=== PATIENT | male | born 1990 | race Caucasian/White ===

== ENCOUNTER 2020-10-27 01:58 | Emergency (ER) | payer SELFPAY ==
[2020-10-27 02:27] VITALS: BP 147/76; PULSE 72; RESP 18; TEMP 36.6; O2SAT 98; BMI 26.4
--- NOTE | 2020-10-27 02:27 | ED_ITS ---
HPI - SOB/Dyspnea General Chief Complaint: Upper Respiratory Symptoms Stated Complaint: fever, cough, headache Time Seen by Provider: 10/27/20 02:27 Source: patient Mode of arrival: ambulatory Limitations: no limitations History of Present Illness HPI Narrative: Patient is exposed to his sick girlfriend, brought her to the ED so he thinks he will get tested, patient states he has sore throat, myalgias, nasal congestion with chills MD elicited complaint: cough Onset (ago): day(s) Context: recent illness Timing: constant Severity: mild Exacerbating factors: nothing Relieving factors: nothing Associated symptoms: denies other symptoms Related Data Allergies Allergy/AdvReac Type Severity Reaction Status Date / Time No Known Allergies Allergy Unverified 10/26/19 19:25 [No Known Allergies*] Review of Systems Constitutional: Constitutional: Reports no additional constitutional complaints Eyes: Eyes: Reports no additional eye complaints ENT: Denies dizziness Cardiovascular: Cardiovascular: Reports no additional cardiovascular complaints Respiratory: Respiratory: Reports as per HPI Gastrointestinal: Gastrointestinal: Reports no additional gastrointestinal complaints Musculoskeletal: Musculoskeletal: Reports no additional musculoskeletal complaints Integumentary/Breasts: Skin/Breast: Denies rash Neurologic: Reports system reviewed and no additional complaints, except as documented, Denies dizziness and Denies Sensory deficit (Neuro) Psychiatric: Psychiatric: Denies anxiety PMFSH Social History Social History Advance Directives: No Advance Directives Information Provided: Yes Physical Exam Vital Signs: Vital Signs: Last Vital Signs Temp 97.8 F 10/27/20 02:27 Pulse 72 10/27/20 02:27 Resp 18 10/27/20 02:27 BP 147/76 H 10/27/20 02:27 Pulse Ox 98 10/27/20 02:27 Body Mass Index 26.4 Const: General: healthy appearing Nutritional Appearance: average body johnson bitus Orientation/consciousness: oriented to person and patient oriented x3 Limitations: no limitations HENMT: Head: Yes normal to inspection Ears: external ears normal General nose exam: Normal external nose present Mouth: Normal oral and palatal mucosa present and oropharynx normal Throat: Yes posterior oropharynx normal Eyes: General: appearance normal, both eyes and all related structures Neck: Other: supple Neck: Yes normal visual inspection Chest: Chest palpation & inspection: normal inspection of the chest Resp: Auscultation: clear to auscultation bilaterally Cardio: Jugular venous distension: no JVD Rate: regular rate Rhythm: regular rhythm Heart sounds: S1 normal heart sound present and S2 normal heart sound present GI: Inspection: Yes normal to inspection Palpation (GI): Soft to palpation, nontender and No hepatosplenomegaly present Auscultation: normal bowel sounds : General: Yes no CVA tenderness Back/Spine/Pelvis: Back: no CVA tenderness Skin: General skin exam: no rashes or lesions noted Neuro: General: oriented to person and patient oriented x3 Cranial nerves: Yes CN's II-XII intact bilaterally Motor exam (neuro): 5/5 motor strength present throughout Sensory Exam: No Sensory deficit (Neuro) Extrem: General: Yes normal to inspection Psych: Appearance: grossly normal Course Reevaluation(s) Reevaluation #1: patient with viral illness, COVID negative will dc home Time: 04:45 MDM - SOB/Dyspnea Lab Data Labs: Lab Results 10/27/20 Range/Units 02:45 Coronavirus (PCR) NEGATIVE (Negative) Influenza Type A (PCR) NEGATIVE (Negative) Influenza Type B (PCR) NEGATIVE (Negative) RSV RNA Qual (PCR) NEGATIVE (Negative) Discharge Plan Discharge Clinical Impression: Viral infection Patient Disposition: Home, Self-Care Instructions: Viral Syndrome (ED) Referrals: Physician,Nonstaff [Primary Care Provider] - 1 week
[2020-10-27 03:46] LABS: Influenza A PCR NEGATIVE (Negative); Influenza B PCR NEGATIVE (Negative); Resp Syncy Virus RNA Qual PCR NEGATIVE (Negative); SARS COV2 PCR INHOUSE NEGATIVE (Negative)
== END 2020-10-27 05:06 | disposition home or self-care (01) ==
PROVIDERS: Emergency Provider Emergency Medicine
DX: B34.9 Viral infection, unspecified (principal); R50.9 Fever, unspecified; R51.9 Headache, unspecified; R05 Cough; Z20.822 Contact with and (suspected) exposure to COVID-19
CPT/HCPCS: 0241U; 36415; 99283

== ENCOUNTER 2021-10-21 12:57 | Emergency (ER) | payer SELFPAY ==
--- NOTE | ~2021-10-21 | XR_ITS ---
EXAMINATION: XR CHEST CLINICAL INFORMATION: Left-sided chest pain COMPARISON: Chest x-ray 03/27/2017 TECHNIQUE: 2 views of the chest were obtained. FINDINGS: No significant abnormality is noted involving the heart, lungs, mediastinum, bony thorax or soft tissues. XR/XR chest 2V IMPRESSION: Unremarkable examination.
--- NOTE | 2021-10-21 13:10 | ECG_ITS ---
Test Reason : chest pain Blood Pressure : / mmHG Vent. Rate : 071 BPM Atrial Rate : 071 BPM P-R Int : 130 ms QRS Dur : 084 ms QT Int : 372 ms P-R-T Axes : 054 -05 029 degrees QTc Int : 404 ms Normal sinus rhythm Normal ECG No previous ECGs available Referred By: Generic ED Physician Electronically Signed By:MITESH VERDIN
[2021-10-21 14:48] VITALS: BP 155/92; PULSE 90; RESP 18; TEMP 36.8; O2SAT 98; BMI 31.3
[2021-10-21 15:12] LABS: MANUAL DIFF FLAG NO
[2021-10-21 15:13] LABS: Basophils Percent Auto 0.3 % (0-2); Eosinophils Absolute Auto 0.2 X10*3/uL (0.0-0.4); Eosinophils Percent Auto 3.1 % (0-4); Hematocrit 47.9 % (42.0-52.0); Hemoglobin 16.5 g/dl (14.0-18.0); Imm Gran Abs Auto 0.06 X10*3/uL (0.00-0.03); Lymphocytes Absolute Auto 2.1 X10*3/uL (1.2-4.9); Lymphocytes Percent Auto 33.3 % (20-40); Mean Corpuscular HGB Conc 34.4 g/dl (31.0-36.0); Mean Corpuscular Hemoglobin 29.9 pg (27.0-33.0); Mean Corpuscular Volume 86.9 fL (80.0-98.0); Mean Platelet Volume 11.2 fL (9.4-12.4); Monocytes Absolute Auto 0.7 X10*3/uL (0.1-1.2); Monocytes Percent Auto 10.8 % (2-11); Neutrophils Absolute Auto 3.2 x10*3/uL (2.0-8.3); Neutrophils Percent Auto 51.5 % (45-73); Platelet Count 285 X10*3/uL (160-400); Red Blood Count 5.51 X10*6/uL (4.60-5.80); Red Cell Distribution Width 12.1 % (11.0-16.0); White Blood Count 6.2 X10*3/uL (4.8-10.8)
[2021-10-21 15:32] LABS: Anion Gap 14 (12-20); Blood Urea Nitrogen 13 mg/dL (9-16); Calcium 9.7 mg/dL (8.4-10.2); Carbon Dioxide 30 mmol/L (22-29); Chloride 102 mmol/L (96-108); Creatinine Clr Calc Pharmacy 115.9; Estimated Glomerular Filt Rate > 60; Glucose Random 78 mg/dL (60-115); Sodium 142 mmol/L (135-145)
--- NOTE | 2021-10-21 15:56 | ED_ITS ---
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 Patient denies any associated travel, calf swelling, fever, chills, new cough, drug use but states that the pain is worse with lying down onto his left side and with movement of his left arm. He reports a known ?fatty mass? in his anterior chest and he does describe reproducible pain on palpation. Patient denies any exercise or work related injuries. Related Data Previous Rx's Medication Instructions Recorded ketorolac 10 mg tablet 10 mg PO Q6H PRN pain 5 days #20 10/21/21 tabs Allergies Allergy/AdvReac Type Severity Reaction Status Date / Time No Known Allergies Allergy Unverified 10/26/19 19:25 [No Known Allergies*] Review of Systems Review of Systems: Pertinent positives and negatives as stated in HPI 10 point review of systems is otherwise negative. PMFSH Past Medical History Source: nursing notes reviewed Social History Social History Advance Directives: No Advance Directives Information Provided: No Physical Exam Vital Signs: Vital Signs: Last Vital Signs Temp 98.2 F 10/21/21 14:48 Pulse 90 10/21/21 14:48 Resp 18 10/21/21 14:48 BP 155/92 H 10/21/21 14:48 Pulse Ox 98 10/21/21 14:48 O2 Del Method 10/21/21 14:48 BMI result Body Mass Index 31.3 VITAL SIGNS: Reviewed. GENERAL: Well developed, well nourished, in no acute distress. HEAD: Normocephalic/atraumatic EYES: PERRLA, EOMI EARS: Ext canals without abnormality OROPHARYNX: no oral lesions noted, posterior pharynx clear LUNGS: Normal breath sounds. No adventitious sounds or accessory muscle use. SpO2<98>; CHEST WALL: Reproducible pain on palpation at the left upper back around scapular area without noted masses CARDIOVASCULAR: Regular rate and rhythm without noted murmurs ABDOMEN: Soft, non-tender, non-distended with bowel sounds. MUSCULOSKELETAL: No tenderness, deformities, or effusions noted on gross inspection. EXTREMITIES: No cyanosis, clubbing or edema. SKIN: Inspection of the skin reveals no rashes NEUROLOGIC: Alert and oriented x 4. Strength and sensation to light touch were grossly intact x 4. Course Course Course Narrative: 31-year-old male with history and clinical presentation most consistent with likely musculoskeletal pain as pain has been ongoing for the past 3 weeks and does not appear to be associated with alcohol use, infectious symptoms, PERC negative, low clinical suspicion for GERD/acid reflux. On re-evaluation patient states that he is feeling much better and on review of the chest x-ray there are no acute findings to better explain patient's presentation. He is otherwise discharged home in stable condition with ins tructions to follow-up with his primary care provider. MDM - Chest Pain Lab Data Result diagrams: 10/21/21 15:09 10/21/21 15:09 Labs: Lab Results 10/21/21 10/21/21 Range/Units 15: 15:09 WBC 6.2 (4.8-10.8) X10*3/uL RBC 5.51 (4.60-5.80) X10*6/uL Hgb 16.5 (14.0-18.0) g/dl Hct 47.9 (42.0-52.0) % MCV 86.9 (80.0-98.0) fL MCH 29.9 (27.0-33.0) pg MCHC 34.4 (31.0-36.0) g/dl RDW 12.1 (11.0-16.0) % Plt Count 285 (160-400) X10*3/uL MPV 11.2 (9.4-12.4) fL Immature Gran % (Auto) 1.0 H (0.0-0.4) % Neut % (Auto) 51.5 (45-73) % Lymph % (Auto) 33.3 (20-40) % [place] % (Auto) 10.8 (2-11) % Eos % (Auto) 3.1 (0-4) % Baso % (Auto) 0.3 (0-2) % Lymph # (Auto) 2.1 (1.2-4.9) X10*3/uL [place] # (Auto) 0.7 (0.1-1.2) X10*3/uL Eos # (Auto) 0.2 (0.0-0.4) X10*3/uL Baso # (Auto) 0.0 (0.0-0.2) X10*3/uL Abs Immat Gran (auto) 0.06 H (0.00-0.03) X10*3/uL Absolute Neuts (auto) 3.2 (2.0-8.3) x10*3/uL Absolute Nucleated RBC 0.000 (0.0-0.012) X10*3/uL Nucleated RBC % (auto) 0.0 (0.0-0.2) /100WBC Sodium 142 (135-145) mmol/L Potassium 4.0 (3.3-5.1) mmol/L Chloride 102 (96-108) mmol/L Carbon Dioxide 30 H (22-29) mmol/L Anion Gap 14 (12-20) BUN 13 (9-16) mg/dL Creatinine 1.01 (0.5-1.4) mg/dL Estim Creat Clear Calc 115.9 Estimated GFR > 60 Random Glucose 78 (60-115) mg/dL Calcium 9.7 (8.4-10.2) mg/dL ECG Data ECG #1: Attestation: I personally reviewed and interpreted this ECG as follows: Prior ECG tracings: not available for review Interpretation: Normal sinus rhythm, HR-71, no STEMI, AL/QRS/QTC is within normal limits. Discharge Plan Discharge Clinical Impression: Atypical chest pain, Musculoskeletal back pain, Muscle spasm Patient Disposition: Home, Self-Care Instructions: Musculoskeletal Pain (ED), Muscle Spasm (ED), Chest Wall Pain (ED) Additional Instructions: 1. Tylenol 1000 mg, por v?a oral, cada 6 horas seg?n sea necesario para controlar el dolor. No exceda los 4000 mg dentro de las 24 horas. 2. Parche de lidoca?na, aplique en el ?veronica de m?xima sensibilidad juan alberto se indica en el empaque exterior. 3. Programe/restablezca la atenci?n con navarrete proveedor de atenci?n primaria llamando a la oficina por la ma?jc. Regrese a la rey de emergencias si los s?ntomas empeoran Prescriptions: New ketorolac 10 mg tablet 10 mg PO Q6H PRN (Reason: pain) 5 Days Qty: 20 0RF Rx Instructions: 1. Patient has received this medication, Toradol, in the ER Referrals: [facility] [Outside] Print Language: New Zealander
[2021-10-21] MEDS: Ketorolac Tromethamine 15 MG/ML VIAL IM (16:41)
[2021-10-21] MEDS: Lidocaine 4 % Patch ADH..PATCH 1 PATCH TRANSDERMA (16:42)
[2021-10-21] MEDS: Acetaminophen 325 MG TABLET 975 MG PO (16:42)
== END 2021-10-21 18:46 | disposition home or self-care (01) ==
PROVIDERS: Emergency Provider Student in an Organized Health Care Education/Training Program
DX: R07.89 Other chest pain (principal); M54.6 Pain in thoracic spine; M62.830 Muscle spasm of back
CPT/HCPCS: 36415; 71046; 80048; 85025; 93005; 96372; 99283; 99284; J1885

== ENCOUNTER 2022-04-16 13:31 | Emergency (ER) | payer MEDICAID, SELFPAY ==
[2022-04-16 13:41] VITALS: BP 152/101; PULSE 87; RESP 18; TEMP 36.6; O2SAT 98; BMI 34.4
--- NOTE | 2022-04-16 13:42 | ED_ITS ---
HPI - Male Genitourinary General Chief complaint: Urogenital-Male <Erum Galvin CNP - Last Filed: 04/16/22 13:50> Stated complaint: UTI x3 weeks <Erum Galvin CNP - Last Filed: 04/16/22 13:50> Time Seen by Provider: 04/16/22 14:05 <Erum Galvin CNP - Last Filed: 04/16/22 13:50> Source: patient, RN notes reviewed and clerical and administrative workers <Jim Schmitt - Last Filed: 04/16/22 15:46> Mode of arrival: ambulatory <Jim Schmitt - Last Filed: 04/16/22 15:46> Limitations: language barrier <Jim Schmitt - Last Filed: 04/16/22 15:46> History of Present Illness HPI Narrative: 32-year-old male presents for evaluation of burning with urination. Patient reports pain with urination for the last 3 weeks. He reports a clear to yellowish discharge intermittently. He denies any testicular pain or swelling. Denies any rashes or lesions. Reports he is and denies any new, unprotected sexual encounters Denies any abdominal pain or cramping <Jim Schmitt - Last Filed: 04/16/22 15:46> Related Data Home medications: Previous Rx's Medication Instructions Recorded ketorolac 10 mg tablet 10 mg PO Q6H PRN pain 5 days #20 10/21/21 tabs doxycycline hyclate 100 mg capsule 100 mg PO BID #19 caps 04/16/22 <Erum Galvin CNP - Last Filed: 04/16/22 13:50> Allergies/Adverse reactions: Allergies Allergy/AdvReac Type Severity Reaction Status Date / Time No Known Allergies Allergy Unverified 10/26/19 19:25 [No Known Allergies*] <Erum Galvin CNP - Last Filed: 04/16/22 13:50> Review of Systems Constitutional: Constitutional: Reports as per HPI, Denies chills and Denies fatigue <Jim Schmitt - Last Filed: 04/16/22 15:46> Cardiovascular: Cardiovascular: Denies chest pain and Denies dyspnea <Jim Schmitt - Last Filed: 04/16/22 15:46> Respiratory: Respiratory: Denies cough and Denies dyspnea <Jim OWily - Last Filed: 04/16/22 15:46> Gastrointestinal: Gastrointestinal: Denies abdominal pain, Denies constipation and Denies vomiting <Jim Schmitt - Last Filed: 04/16/22 15:46> Genitourinary: Genitourinary: Reports dysuria, Reports penile discharge, Denies scrotal swelling, Denies testicular mass, Denies testicular pain and Reports urinary frequency <Jim Schmitt - Last Filed: 04/16/22 15:46> Endocrine: Endocrine: Denies fatigue <Jim Schmitt - Last Filed: 04/16/22 15:46> [facility] Social History Social History: Social History Advance Directives: No Advance Directives Information Provided: Yes <Erum Galvin CNP - Last Filed: 04/16/22 13:50> Physical Exam Vital Signs: Vital Signs: Last Vital Signs Temp 97.8 F 04/16/22 13:41 Pulse 87 04/16/22 13:41 Resp 18 04/16/22 13:41 BP 152/101 H 04/16/22 13:41 Pulse Ox 98 04/16/22 13:41 O2 Del Method 04/16/22 13:41 BMI result Body Mass Index 34.4 <Erum Galvin CNP - Last Filed: 04/16/22 13:50> Vital Signs: Last Vital Signs Temp 97.8 F 04/16/22 13:41 Pulse 87 04/16/22 13:41 Resp 18 04/16/22 13:41 BP 152/101 H 04/16/22 13:41 Pulse Ox 98 04/16/22 13:41 O2 Del Method 04/16/22 13:41 BMI result Body Mass Index 34.4 <Jim CameronMontezuma - Last Filed: 04/16/22 15:46> Const: General: healthy appearing, comfortable and no acute distress <Jim Schmitt - Last Filed: 04/16/22 15:46> Orientation/consciousness: patient oriented x3 <Jim CameronMontezuma - Last Filed: 04/16/22 15:46> Resp: Effort & Inspection: normal respiratory effort <Jim Keshia - Last Filed: 04/16/22 15:46> : Other: Patient declined exam stating ?there is nothing out of the ordinary. ? <Aldo stauffer Keshia - Last Filed: 04/16/22 15:46> Neuro: General: patient oriented x3 <Jim Schmitt - Last Filed: 04/16/22 15:46> Course Course Course Narrative: This is an RME: Additional HPI, ROS, PE not included below will be deferred to primary provider. Patient is a 32-year-old male presents emergency department for evaluation of concern for urinary tract infection. Reports onset of symptoms 3 weeks ago; dysuria and yellow penile discharge. Denies fevers, chills, nausea, vomiting, hematuria, abdominal pain. Denies concern for STI, reports monogamous relationship. Plan: Urinalysis, CT/NG <Erum Galvin CNP - Last Filed: 04/16/22 13:50> Medications Administered Discontinued Medications Generic Name Dose Route Start Last Admin Trade Name Freq PRN Reason Stop Dose Admin Ceftriaxone Sodium 500 mg 04/16/22 14:25 04/16/22 14:50 Ceftriaxone Sodium 500 Mg Vial IM 04/16/22 14:26 500 mg ONCE ONE Administration Doxycycline Monohydrate 100 mg 04/16/22 14:25 04/16/22 14:50 Doxycycline Monohydrate 100 Mg Capsule PO 04/16/22 14:26 100 mg ONCE ONE Administration Lidocaine HCl 2 ml 04/16/22 14:46 04/16/22 14:50 Lidocaine Hcl 1 % Mpf 2 Ml Vial INFILTRATI 04/16/22 14:47 2 ml ONCE ONE Administration <Erum Galvin CNP - Last Filed: 04/16/22 13:50> Medications Administered Discontinued Medications Generic Name Dose Route Start Last Admin Trade Name Freq PRN Reason Stop Dose Admin Ceftriaxone Sodium 500 mg 04/16/22 14:25 04/16/22 14:50 Ceftriaxone Sodium 500 Mg Vial IM 04/16/22 14:26 500 mg ONCE ONE Administration Doxycycline Monohydrate 100 mg 04/16/22 14:25 04/16/22 14:50 Doxycycline Monohydrate 100 Mg Capsule PO 04/16/22 14:26 100 mg ONCE ONE Administration Lidocaine HCl 2 ml 04/16/22 14:46 04/16/22 14:50 Lidocaine Hcl 1 % Mpf 2 Ml Vial INFILTRATI 04/16/22 14:47 2 ml ONCE ONE Administration <Jim Keshia - Last Filed: 04/16/22 15:46> Medical Decision Making Medical Decision Making MDM Narrative: We will send a UA, gonorrhea and chlamydia testing. Clinically with a urethral discharge the patient describing, he most likely has a Section tendon infection. I discussed that we will test him for this but will treat empirically as well. We will treat with ceftriaxone and doxycycline. The patient did decline physical examination noted that there was no discharge at the moment but denies any testicular pain or swelling. Less likely to be epididymitis or testicular torsion <Jim Schmitt - Last Filed: 04/16/22 15:46> Differential Diagnosis UTI Gonorrhea Chlamydia Sexually transmitted infection Epididymitis less likely <Jim Schmitt - Last Filed: 04/16/22 15:46> Lab Data Labs: Lab Results 04/16/22 Range/Units 14:32 Urine Color Yellow Urine Appearance Clear Urine pH 6.0 (5.0-9.0) Ur Specific [place] >= 1.030 H (1.005-1.025) Urine Protein Trace (Neg-Trace) mg/dL Urine Glucose (UA) Negative (Negative) mg/dL Urine Ketones Negative (Negative) mg/dL Urine Blood Trace H (Negative) Urine Nitrite Negative (Negative) Ur Leukocyte Esterase Small (1+) H (Negative) Urine RBC 0-2 (0-2) /HPF Urine WBC 21-50 H (0-5) /HPF Ur Squamous Epith Cells 0-2 (0-2) /HPF Urine Bacteria None Seen (None Seen) Hyaline Casts 0-2 (0-2) /LPF <Erum Galvin CNP - Last Filed: 04/16/22 13:50> Lab Results 04/16/22 Range/Units 14:32 Urine Color Yellow Urine Appearance Clear Urine pH 6.0 (5.0-9.0) Ur Specific [place] >= 1.030 H (1.005-1.025) Urine Protein Trace (Neg-Trace) mg/dL Urine Glucose (UA) Negative (Negative) mg/dL Urine Ketones Negative (Negative) mg/dL Urine Blood Trace H (Negative) Urine Nitrite Negative (Negative) Ur Leukocyte Esterase Small (1+) H (Negative) Urine RBC 0-2 (0-2) /HPF Urine WBC 21-50 H (0-5) /HPF Ur Squamous Epith Cells 0-2 (0-2) /HPF Urine Bacteria None Seen (None Seen) Hyaline Casts 0-2 (0-2) /LPF <Jim Schmitt - Last Filed: 04/16/22 15:46> Discharge Plan Discharge Clinical Impression: Urethritis <Erum Galvin CNP - Last Filed: 04/16/22 13:50> Patient Disposition: Home, Self-Care <Erum Galvin CNP - Last Filed: 04/16/22 13:50> Instructions: Safe Sex Practices (ED) <Erum Galvin CNP - Last Filed: 04/16/22 13:50> Additional Instructions: You were tested for both gonorrhea and chlamydia as the most likely diagnosis. We will call you if your test results are positive. Continue taking the doxycycline twice daily for a total of 10 days Finishing this treatment will cover for both gonorrhea and chlamydia <Erum Galvin CNP - Last Filed: 04/16/22 13:50> Prescriptions: New doxycycline hyclate 100 mg capsule 100 mg PO BID Qty: 19 0RF No Action ketorolac 10 mg tablet 10 mg PO Q6H PRN (Reason: pain) 5 Days Qty: 20 0RF Rx Instructions: 1. Patient has received this medication, Toradol, in the ER <Erum Galvin CNP - Last Filed: 04/16/22 13:50>
[2022-04-16 14:45] LABS: Appearance Urine Clear; Color Urine Yellow; Glucose Urine UA Negative (Negative); Leukocyte Esterase Urine Small (1+) (Negative); Nitrite Urine Negative (Negative); Specific Gravity - Urine >= 1.030 (1.005-1.025); UMIC TRIGGER UACC YES; Urine Blood Trace (Negative); Urine Ketones Negative (Negative); Urine Protein Trace mg/dL (Neg-Trace)
[2022-04-16 14:49] LABS: Bacteria Urine None Seen (None Seen); Hyaline Casts Urine 0-2 /LPF (0-2); RBC Urine 0-2 /HPF (0-2); Squamous Epithelial Cell Urine 0-2 /HPF (0-2); UACC Culture Trigger YES; WBC Urine 21-50 /HPF (0-5)
[2022-04-16] MEDS: cefTRIAXone sodium 500 MG VIAL IM (14:50)
[2022-04-16] MEDS: Lidocaine HCl 1 % MPF 2 ML VIAL INFILTRATI (14:50)
[2022-04-16] MEDS: Doxycycline Monohydrate 100 MG CAPSULE PO (14:50)
[2022-04-16 16:39] LABS: CT PCR DETECTED (Not Detect.); NG PCR NOT DETECTED (Not Detect.)
== END 2022-04-16 16:03 | disposition home or self-care (01) ==
PROVIDERS: Nurse Practitioner Family; Emergency Provider Emergency Medicine Emergency Medical Services
DX: N34.2 Other urethritis (principal); R30.0 Dysuria; Z79.899 Other long term (current) drug therapy
CPT/HCPCS: 0353U; 81001; 87086; 96372; 99282; 99284; J0696

== ENCOUNTER 2022-04-20 16:48 | Emergency (ER) | payer MEDICAID, SELFPAY ==
--- NOTE | ~2022-04-20 | US_ITS ---
EXAMINATION: US ABDOMEN COMPLETE CLINICAL INFORMATION: Nausea/vomiting/diarrhea and abdominal pain. COMPARISON: None TECHNIQUE: Real-time imaging of the abdominal viscera. FINDINGS: PANCREAS: The head of the pancreas is homogeneous in echotexture and normal. The body and the tail is obscured narrowing gas. ABDOMINAL AORTA: The mid, and distal segments are normal in caliber. The proximal segment is not visualized due to overlying gas. INFERIOR VENA CAVA: Visualized portions are normal. LIVER: The liver is normal in size. The liver contour is normal. Parenchymal echogenicity is slightly increased. No focal hepatic lesion. There is no intrahepatic biliary duct dilatation seen. GALLBLADDER: Normal. The gallbladder is physiologically distended without evidence of stones, sludge, polyps, wall thickening or pericholecystic fluid. COMMON BILE DUCT: Normal in caliber measuring 0.3 cm in diameter. RIGHT KIDNEY: Normal. No hydronephrosis. No renal calculi or focal parenchymal lesions. The kidney measures 10.3 cm in maximum dimension. LEFT KIDNEY: Normal. No hydronephrosis. No renal calculi or focal parenchymal lesions. The kidney measures 10.8 cm in maximum dimension. SPLEEN: Normal. The spleen measures 13.3 cm in maximum dimension. FREE FLUID: None. US/US abdomen complete IMPRESSION: Hepatic steatosis without focal lesion. The head of the pancreas is unremarkable. The body and the tail is not seen. Mid and the distal abdominal aorta segments are normal caliber.
[2022-04-20 18:07] VITALS: BP 135/86; PULSE 117; RESP 18; TEMP 37.1; O2SAT 100; BMI 34.4
--- NOTE | 2022-04-20 18:08 | ED_ITS ---
HPI - Abdominal Pain General Chief Complaint: Nausea/Vomiting/Diarrhea <DIANNA Cadena - Last Filed: 04/20/22 18:11> Stated Complaint: vomiting diarrhea abd pain <DIANNA Cadena - Last Filed: 04/20/22 18:11> Time Seen by Provider: 04/20/22 21:20 <DIANNA Cadena - Last Filed: 04/20/22 18:11> Source: patient <Frank Castano MD - Last Filed: 04/20/22 22:04> Mode of arrival: ambulatory <Frank Castano MD - Last Filed: 04/20/22 22:04> Limitations: no limitations <Frank Castano MD - Last Filed: 04/20/22 22:04> History of Present Illness HPI narrative: 32-year-old male with no major medical problems presents with epigastric abdominal pain, nausea vomiting. Symptoms started today. He has been on antibiotics for 3 days for urinary tract infection. The pain that he is experiencing as moderate in nature. The pain is epigastric. Does not radiate. There is no clear relieving or exacerbating features. There has been no fevers or chills. He denies any diarrhea or constipation. He does have a slight headache. Pain is described as achy and crampy in nature. Patient denies any sick contacts. <Frank Castano MD - Last Filed: 04/20/22 22:04> Related Data Home Medications: Previous Rx's Medication Instructions Recorded cephalexin 500 mg capsule 500 mg PO BID #14 caps 04/20/22 ondansetron 4 mg disintegrating 4 mg PO Q8H PRN nausea and 04/20/22 tablet vomiting #10 tabs <DIANNA Cadena - Last Filed: 04/20/22 18:11> Allergies/Adverse Reactions: Allergies Allergy/AdvReac Type Severity Reaction Status Date / Time No Known Allergies Allergy Verified 04/20/22 18:06 [No Known Allergies*] <DIANNA Cadena - Last Filed: 04/20/22 18:11> [facility] Social History Social History: Social History Advance Directives: No Advance Directives Information Provided: Yes <DIANNA Cadena - Last Filed: 04/20/22 18:11> Physical Exam ED Vital Signs: Vital Signs - 24 hr 04/20/22 18:07 04/20/22 21:22 Temperature 98.7 F Pulse Rate 117 H 108 H Respiratory Rate 18 18 Blood Pressure 135/86 140/98 H Pulse Oximetry 100 98 Oxygen Delivery Method Room Air Room Air BMI result Body Mass Index 34.4 <DIANNA Cadena - Last Filed: 04/20/22 18:11> Vital Signs - 24 hr 04/20/22 18:07 04/20/22 21:22 Temperature 98.7 F Pulse Rate 117 H 108 H Respiratory Rate 18 18 Blood Pressure 135/86 140/98 H Pulse Oximetry 100 98 Oxygen Delivery Method Room Air Room Air BMI result Body Mass Index 34.4 <Frank Castano MD - Last Filed: 04/20/22 22:04> GEN: Well developed, no acute distress, alert, oriented HEENT: Normocephalic, atraumatic, normal external ears, nose appears normal, no oropharyngeal edema or exudates Eyes: Normal to appearance Neck: Supple, no lymphadenopathy Respiratory: Talks in complete sentences, no respiratory distress, clear to auscultation bilaterally Cardiovascular: Regular rate and rhythm, no murmurs rubs or gallops Abdomen: Soft, , nondistended, no guarding, no rebound, epigastric tenderness Back: No CVA tenderness Extremities: No clubbing cyanosis or edema Neurologic: No focal neurologic deficits, cranial nerves 2-12 intact, strength is 5/5 bilaterally, gait normal Skin: No rash <Frank Castano MD - Last Filed: 04/20/22 22:04> Course Course Course Narrative: SETH-18:08pm - 32yoM who is Guyanese-speaking presenting to the ER with complaints of subjective fevers, chills, fatigue, malaise, body aches, nausea/vomiting/diarrhea and epigastric abdominal pain that started last night worse today. Reports his children has similar symptoms a week ago. Denies any other sick contacts. Denies any measured fevers, cough, chest pain or shortness of breath, black or bloody stools, urinary symptoms, possible bad food exposure, recent antibiotic usage or hospitalization or any other symptoms complaints or concerns at this time. Plan: Will obtain labs, UA, COVID/RSV/flu swab, abdominal ultrasound. Patient will be sent back to the waiting room to be evaluated the ED. <DIANNA Cadena - Last Filed: 04/20/22 18:11> Reevaluation(s) Reevaluation #1: 32-year-old male presents with epigastric abdominal pain. He started doxycycline recently. Exam is relatively benign with some epigastric abdominal tenderness without rebound or guarding, negative Pelaez sign, negative McBurney's point tenderness. He did have nausea vomiting which I suspect is antibiotic related. I also believe his abdominal discomfort is associated with the antibiotic use as well. His laboratory analysis, ultrasound was unremarkable for any acute abnormalities that could indicate the etiology of his symptoms otherwise. Other possible diagnoses could include peptic ulcer disease, gastritis. I did review the patient's urinalysis. Ten thousand CFU. However, is still unusual for a man to have a urinary tract infection. At this point I would still opt to treat. <Frank Castano MD - Last Filed: 04/20/22 22:04> Time: 21:57 <Frank Castano MD - Last Filed: 04/20/22 22:04> Medical Decision Making Medical Decision Making [facility] Narrative: 32-year-old male presents with epigastric abdominal pain. Examination was benign. Differential diagnosis is broad. I doubt anything catastrophic such as AAA, mesenteric ischemia, splenic infarct, etc.. This is most likely antibiotic reaction. Possibly, this could be peptic ulcer disease, gastritis, GERD, biliary. Patient lab laboratory analysis, imaging studies and re-evaluation. <Frank Castano MD - Last Filed: 04/20/22 22:04> Differential Diagnosis Differential Diagnoses: The differential diagnosis associated with the presentation includes (Antibiotic reaction, pancreatitis, IBS, IBD, biliary colic, peptic ulcer disease, gastritis, GERD, esophageal spasm, dysmotility, bacterial overgrowth) <Frank Castano MD - Last Filed: 04/20/22 22:04> Epigastric abdominal pain <Frank Castano MD - Last Filed: 04/20/22 22:04> Admission/Observation Consideration of admission/observation: Escalation of care including admission/observation considered <Frank Castano MD - Last Filed: 04/20/22 22:04> Lab Data [facility] Lab Attestation statement: I reviewed the patient's lab results. <Frank Castano MD - Last Filed: 03/13/23 22:04> Result Diagrams: 04/20/22 18:50 04/20/22 18:50 <DIANNA Cadena - Last Filed: 04/20/22 18:11> Labs: Lab Results 04/20/22 04/20/22 04/20/22 Range/Units 18:50 18:50 18:50 WBC 8.2 (4.8-10.8) X10*3/uL RBC 5.59 (4.60-5.80) X10*6/uL Hgb 16.9 (14.0-18.0) g/dl Hct 48.9 (42.0-52.0) % MCV 87.5 (80.0-98.0) fL MCH 30.2 (27.0-33.0) pg MCHC 34.6 (31.0-36.0) g/dl RDW 12.2 (11.0-16.0) % Plt Count 303 (160-400) X10*3/uL MPV 11.7 (9.4-12.4) fL Immature Gran % (Auto) 0.6 H (0.0-0.4) % Neut % (Auto) 81.2 H (45-73) % Lymph % (Auto) 9.7 L (20-40) % [place] % (Auto) 8.0 (2-11) % Eos % (Auto) 0.4 (0-4) % Baso % (Auto) 0.1 (0-2) % Lymph # (Auto) 0.8 L (1.2-4.9) X10*3/uL [place] # (Auto) 0.7 (0.1-1.2) X10*3/uL Eos # (Auto) 0.0 (0.0-0.4) X10*3/uL Baso # (Auto) 0.0 (0.0-0.2) X10*3/uL Abs Immat Gran (auto) 0.05 H (0.00-0.03) X10*3/uL Absolute Neuts (auto) 6.6 (2.0-8.3) x10*3/uL Absolute Nucleated RBC 0.000 (0.0-0.012) X10*3/uL Nucleated RBC % (auto) 0.0 (0.0-0.2) /100WBC ESR 7 (0-15) MM/HR PT 13.0 (10.0-13.1) SEC INR 1.1 (0.9-1.1) Sodium (135-145) mmol/L Potassium (3.3-5.1) mmol/L Chloride (96-108) mmol/L Carbon Dioxide (22-29) mmol/L Anion Gap (12-20) BUN (9-16) mg/dL Creatinine (0.5-1.4) mg/dL Estim Creat Clear Calc Estimated GFR Random Glucose (60-115) mg/dL Calcium (8.4-10.2) mg/dL Magnesium (1.6-2.6) mg/dL Total Bilirubin (0.0-1.0) mg/dL AST (5-37) U/L ALT (0-40) U/L Alkaline Phosphatase (39-117) U/L C-Reactive Protein (< or = 0.50) mg/dL Total Protein (6.5-8.0) g/dL Albumin (3.5-5.0) g/dL Lipase (8-78) U/L Urine Color Urine Appearance Urine pH (5.0-9.0) Ur Specific [place] (1.005-1.025) Urine Protein (Neg-Trace) mg/dL Urine Glucose (UA) (Negative) mg/dL Urine Ketones (Negative) mg/dL Urine Blood (Negative) Urine Nitrite (Negative) Ur Leukocyte Esterase (Negative) Urine RBC (0-2) /HPF Urine WBC (0-5) /HPF Ur Squamous Epith Cells (0-2) /HPF Urine Bacteria (None Seen) Hyaline Casts (0-2) /LPF Influenza Type A (PCR) (Negative) Influenza Type B (PCR) (Negative) RSV RNA Qual (PCR) (Negative) SARS-CoV-2 RNA (RT-PCR) (Negative) 04/20/22 04/20/22 04/20/22 Range/Units 18:50 18:52 18:54 WBC (4.8-10.8) X10*3/uL RBC (4.60-5.80) X10*6/uL Hgb (14.0-18.0) g/dl Hct (42.0-52.0) % MCV (80.0-98.0) fL MCH (27.0-33.0) pg MCHC (31.0-36.0) g/dl RDW (11.0-16.0) % Plt Count (160-400) X10*3/uL MPV (9.4-12.4) fL Immature Gran % (Auto) (0.0-0.4) % Neut % (Auto) (45-73) % Lymph % (Auto) (20-40) % [place] % (Auto) (2-11) % Eos % (Auto) (0-4) % Baso % (Auto) (0-2) % Lymph # (Auto) (1.2-4.9) X10*3/uL [place] # (Auto) (0.1-1.2) X10*3/uL Eos # (Auto) (0.0-0.4) X10*3/uL Baso # (Auto) (0.0-0.2) X10*3/uL Abs Immat Gran (auto) (0.00-0.03) X10*3/uL Absolute Neuts (auto) (2.0-8.3) x10*3/uL Absolute Nucleated RBC (0.0-0.012) X10*3/uL Nucleated RBC % (auto) (0.0-0.2) /100WBC ESR (0-15) MM/HR PT (10.0-13.1) SEC INR (0.9-1.1) Sodium 142 (135-145) mmol/L Potassium 4.0 (3.3-5.1) mmol/L Chloride 102 (96-108) mmol/L Carbon Dioxide 29 (22-29) mmol/L Anion Gap 15 (12-20) BUN 15 (9-16) mg/dL Creatinine 1.12 (0.5-1.4) mg/dL Estim Creat Clear Calc 108.5 Estimated GFR > 60 Random Glucose 70 (60-115) mg/dL Calcium 9.5 (8.4-10.2) mg/dL Magnesium 1.9 (1.6-2.6) mg/dL Total Bilirubin 1.0 (0.0-1.0) mg/dL AST 29 (5-37) U/L ALT 82 H (0-40) U/L Alkaline Phosphatase 115 (39-117) U/L C-Reactive Protein 1.96 H (< or = 0.50) mg/dL Total Protein 8.3 H (6.5-8.0) g/dL Albumin 4.6 (3.5-5.0) g/dL Lipase 10 (8-78) U/L Urine Color Dark Yellow Urine Appearance Clear Urine pH 6.0 (5.0-9.0) Ur Specific [place] 1.025 (1.005-1.025) Urine Protein 30 (1+) H (Neg-Trace) mg/dL Urine Glucose (UA) Negative (Negative) mg/dL Urine Ketones Trace (Negative) mg/dL Urine Blood Negative (Negative) Urine Nitrite Negative (Negative) Ur Leukocyte Esterase Negative (Negative) Urine RBC 3-5 H (0-2) /HPF Urine WBC 0-5 (0-5) /HPF Ur Squamous Epith Cells 0-2 (0-2) /HPF Urine Bacteria None Seen (None Seen) Hyaline Casts 0-2 (0-2) /LPF Influenza Type A (PCR) NEGATIVE (Negative) Influenza Type B (PCR) NEGATIVE (Negative) RSV RNA Qual (PCR) NEGATIVE (Negative) SARS-CoV-2 RNA (RT-PCR) NEGATIVE (Negative) <DIANNA Cadena - Last Filed: 04/20/22 18:11> Lab Results 04/20/22 04/20/22 04/20/22 Range/Units 18:50 18:50 18:50 WBC 8.2 (4.8-10.8) X10*3/uL RBC 5.59 (4.60-5.80) X10*6/uL Hgb 16.9 (14.0-18.0) g/dl Hct 48.9 (42.0-52.0) % MCV 87.5 (80.0-98.0) fL MCH 30.2 (27.0-33.0) pg MCHC 34.6 (31.0-36.0) g/dl RDW 12.2 (11.0-16.0) % Plt Count 303 (160-400) X10*3/uL MPV 11.7 (9.4-12.4) fL Immature Gran % (Auto) 0.6 H (0.0-0.4) % Neut % (Auto) 81.2 H (45-73) % Lymph % (Auto) 9.7 L (20-40) % [place] % (Auto) 8.0 (2-11) % Eos % (Auto) 0.4 (0-4) % Baso % (Auto) 0.1 (0-2) % Lymph # (Auto) 0.8 L (1.2-4.9) X10*3/uL [place] # (Auto) 0.7 (0.1-1.2) X10*3/uL Eos # (Auto) 0.0 (0.0-0.4) X10*3/uL Baso # (Auto) 0.0 (0.0-0.2) X10*3/uL Abs Immat Gran (auto) 0.05 H (0.00-0.03) X10*3/uL Absolute Neuts (auto) 6.6 (2.0-8.3) x10*3/uL Absolute Nucleated RBC 0.000 (0.0-0.012) X10*3/uL Nucleated RBC % (auto) 0.0 (0.0-0.2) /100WBC ESR 7 (0-15) MM/HR PT 13.0 (10.0-13.1) SEC INR 1.1 (0.9-1.1) Sodium (135-145) mmol/L Potassium (3.3-5.1) mmol/L Chloride (96-108) mmol/L Carbon Dioxide (22-29) mmol/L Anion Gap (12-20) BUN (9-16) mg/dL Creatinine (0.5-1.4) mg/dL Estim Creat Clear Calc Estimated GFR Random Glucose (60-115) mg/dL Calcium (8.4-10.2) mg/dL Magnesium (1.6-2.6) mg/dL Total Bilirubin (0.0-1.0) mg/dL AST (5-37) U/L ALT (0-40) U/L Alkaline Phosphatase (39-117) U/L C-Reactive Protein (< or = 0.50) mg/dL Total Protein (6.5-8.0) g/dL Albumin (3.5-5.0) g/dL Lipase (8-78) U/L Urine Color Urine Appearance Urine pH (5.0-9.0) Ur Specific [place] (1.005-1.025) Urine Protein (Neg-Trace) mg/dL Urine Glucose (UA) (Negative) mg/dL Urine Ketones (Negative) mg/dL Urine Blood (Negative) Urine Nitrite (Negative) Ur Leukocyte Esterase (Negative) Urine RBC (0-2) /HPF Urine WBC (0-5) /HPF Ur Squamous Epith Cells (0-2) /HPF Urine Bacteria (None Seen) Hyaline Casts (0-2) /LPF Influenza Type A (PCR) (Negative) Influenza Type B (PCR) (Negative) RSV RNA Qual (PCR) (Negative) SARS-CoV-2 RNA (RT-PCR) (Negative) 04/20/22 04/20/22 04/20/22 Range/Units 18:50 18:52 18:54 WBC (4.8-10.8) X10*3/uL RBC (4.60-5.80) X10*6/uL Hgb (14.0-18.0) g/dl Hct (42.0-52.0) % MCV (80.0-98.0) fL MCH (27.0-33.0) pg MCHC (31.0-36.0) g/dl RDW (11.0-16.0) % Plt Count (160-400) X10*3/uL MPV (9.4-12.4) fL Immature Gran % (Auto) (0.0-0.4) % Neut % (Auto) (45-73) % Lymph % (Auto) (20-40) % [place] % (Auto) (2-11) % Eos % (Auto) (0-4) % Baso % (Auto) (0-2) % Lymph # (Auto) (1.2-4.9) X10*3/uL [place] # (Auto) (0.1-1.2) X10*3/uL Eos # (Auto) (0.0-0.4) X10*3/uL Baso # (Auto) (0.0-0.2) X10*3/uL Abs Immat Gran (auto) (0.00-0.03) X10*3/uL Absolute Neuts (auto) (2.0-8.3) x10*3/uL Absolute Nucleated RBC (0.0-0.012) X10*3/uL Nucleated RBC % (auto) (0.0-0.2) /100WBC ESR (0-15) MM/HR PT (10.0-13.1) SEC INR (0.9-1.1) Sodium 142 (135-145) mmol/L Potassium 4.0 (3.3-5.1) mmol/L Chloride 102 (96-108) mmol/L Carbon Dioxide 29 (22-29) mmol/L Anion Gap 15 (12-20) BUN 15 (9-16) mg/dL Creatinine 1.12 (0.5-1.4) mg/dL Estim Creat Clear Calc 108.5 Estimated GFR > 60 Random Glucose 70 (60-115) mg/dL Calcium 9.5 (8.4-10.2) mg/dL Magnesium 1.9 (1.6-2.6) mg/dL Total Bilirubin 1.0 (0.0-1.0) mg/dL AST 29 (5-37) U/L ALT 82 H (0-40) U/L Alkaline Phosphatase 115 (39-117) U/L C-Reactive Protein 1.96 H (< or = 0.50) mg/dL Total Protein 8.3 H (6.5-8.0) g/dL Albumin 4.6 (3.5-5.0) g/dL Lipase 10 (8-78) U/L Urine Color Dark Yellow Urine Appearance Clear Urine pH 6.0 (5.0-9.0) Ur Specific [place] 1.025 (1.005-1.025) Urine Protein 30 (1+) H (Neg-Trace) mg/dL Urine Glucose (UA) Negative (Negative) mg/dL Urine Ketones Trace (Negative) mg/dL Urine Blood Negative (Negative) Urine Nitrite Negative (Negative) Ur Leukocyte Esterase Negative (Negative) Urine RBC 3-5 H (0-2) /HPF Urine WBC 0-5 (0-5) /HPF Ur Squamous Epith Cells 0-2 (0-2) /HPF Urine Bacteria None Seen (None Seen) Hyaline Casts 0-2 (0-2) /LPF Influenza Type A (PCR) NEGATIVE (Negative) Influenza Type B (PCR) NEGATIVE (Negative) RSV RNA Qual (PCR) NEGATIVE (Negative) SARS-CoV-2 RNA (RT-PCR) NEGATIVE (Negative) <Frank Castano MD - Last Filed: 04/20/22 22:04> Independent Interpretation I performed an independent interpretation of an: Ultrasound (No definite indication for etiology patient's symptoms) <Frank Castano MD - Last Filed: 04/20/22 22:04> Radiology Impression Discussion of test interpretation with radiology: I have reviewed the radiologist's reading. (IMPRESSION: Hepatic steatosis without focal lesion. The head of the pancreas is unremarkable. The body and the tail is not seen. Mid and the distal abdominal aorta segments are normal caliber. Dictated By:Dhruv Machado MDSigned By:<Electronically signed by Dhruv Machado MD in [place]>04/20/22 18) <Frank Castano MD - Last Filed: 04/20/22 22:04> Tests considered The following testing was considered but not selected: CT scan <Frank Castano MD - Last Filed: 04/20/22 22:04> Prescription Management I considered prescription management with: Pain Medication and Antibiotic <Frank Castano MD - Last Filed: 04/20/22 22:04> Discharge Plan Discharge Clinical Impression: Abdominal pain, acute, epigastric <DIANNA Cadena - Last Filed: 04/20/22 18:11> Patient Disposition: Home, Self-Care <DIANNA Cadena - Last Filed: 04/20/22 18:11> Instructions: Abdominal Pain (ED) <DIANNA Cadena - Last Filed: 04/20/22 18:11> Additional Instructions: STOP DOXYCYCLINE Start Cephalexin 500 mg twice a day for 5 days <DIANNA Cadena - Last Filed: 04/20/22 18:11> Prescriptions: New cephalexin 500 mg capsule 500 mg PO BID Qty: 14 0RF ondansetron 4 mg tablet,disintegrating 4 mg PO Q8H PRN (Reason: nausea and vomiting) Qty: 10 0RF Discontinued doxycycline hyclate 100 mg capsule 100 mg PO BID Qty: 19 0RF ketorolac 10 mg tablet 10 mg PO Q6H PRN (Reason: pain) 5 Days Qty: 20 0RF Rx Instructions: 1. Patient has received this medication, Toradol, in the ER <DIANNA Cadena - Last Filed: 04/20/22 18:11> Referrals: Physician,None [Primary Care Provider] - <DIANNA Cadena - Last Filed: 04/20/22 18:11> Print Language: Guyanese <DIANNA Cadena - Last Filed: 04/20/22 18:11>
[2022-04-20 19:08] LABS: MANUAL DIFF FLAG NO
[2022-04-20 19:12] LABS: Basophils Percent Auto 0.1 % (0-2); Eosinophils Percent Auto 0.4 % (0-4); Hematocrit 48.9 % (42.0-52.0); Hemoglobin 16.9 g/dl (14.0-18.0); Imm Gran Abs Auto 0.05 X10*3/uL (0.00-0.03); Imm Gran Pct Auto 0.6 % (0.0-0.4); Lymphocytes Absolute Auto 0.8 X10*3/uL (1.2-4.9); Lymphocytes Percent Auto 9.7 % (20-40); Mean Corpuscular HGB Conc 34.6 g/dl (31.0-36.0); Mean Corpuscular Hemoglobin 30.2 pg (27.0-33.0); Mean Corpuscular Volume 87.5 fL (80.0-98.0); Mean Platelet Volume 11.7 fL (9.4-12.4); Monocytes Absolute Auto 0.7 X10*3/uL (0.1-1.2); Neutrophils Absolute Auto 6.6 x10*3/uL (2.0-8.3); Neutrophils Percent Auto 81.2 % (45-73); Platelet Count 303 X10*3/uL (160-400); Red Blood Count 5.59 X10*6/uL (4.60-5.80); Red Cell Distribution Width 12.2 % (11.0-16.0); White Blood Count 8.2 X10*3/uL (4.8-10.8)
[2022-04-20 19:13] LABS: Appearance Urine Clear; Color Urine Dark Yellow; Glucose Urine UA Negative (Negative); Leukocyte Esterase Urine Negative (Negative); Nitrite Urine Negative (Negative); Specific Gravity - Urine 1.025 (1.005-1.025); UMIC TRIGGER UACC YES; Urine Blood Negative (Negative); Urine Ketones Trace mg/dL (Negative); Urine Protein 30 (1+) mg/dL (Neg-Trace)
[2022-04-20 19:18] LABS: Bacteria Urine None Seen (None Seen); Hyaline Casts Urine 0-2 /LPF (0-2); Squamous Epithelial Cell Urine 0-2 /HPF (0-2); WBC Urine 0-5 /HPF (0-5)
[2022-04-20 19:18] LABS: INTERNATIONAL NORM RATIO 1.1 (0.9-1.1)
[2022-04-20 19:38] LABS: Alanine Aminotransferase 82 U/L (0-40); Albumin Level 4.6 g/dL (3.5-5.0); Alkaline Phosphatase 115 U/L (39-117); Anion Gap 15 (12-20); Aspartate Amino Transferase 29 U/L (5-37); Blood Urea Nitrogen 15 mg/dL (9-16); C Reactive Protein 1.96 mg/dL (< or = 0.50); Calcium 9.5 mg/dL (8.4-10.2); Carbon Dioxide 29 mmol/L (22-29); Chloride 102 mmol/L (96-108); Creatinine Clr Calc Pharmacy 108.5; Estimated Glomerular Filt Rate > 60; Glucose Random 70 mg/dL (60-115); Lipase 10 U/L (8-78); Magnesium 1.9 mg/dL (1.6-2.6); Sodium 142 mmol/L (135-145); Total Protein 8.3 g/dL (6.5-8.0)
[2022-04-20 19:49] LABS: Erythrocyte Sedimentation Rate 7 MM/HR (0-15)
[2022-04-20 19:53] LABS: Influenza A PCR NEGATIVE (Negative); Influenza B PCR NEGATIVE (Negative); Resp Syncy Virus RNA Qual PCR NEGATIVE (Negative); SARS COV2 PCR INHOUSE NEGATIVE (Negative)
[2022-04-20 21:22] VITALS: BP 140/98; PULSE 108; RESP 18; O2SAT 98
[2022-04-20] MEDS: Ondansetron ODT 4 MG TAB.RAPDIS TRANSLINGU (22:13)
[2022-04-20] MEDS: cephALEXin 500 MG CAPSULE PO (22:13)
== END 2022-04-20 22:29 | disposition home or self-care (01) ==
PROVIDERS: Physician Assistant Medical; Emergency Provider Emergency Medicine
DX: R11.2 Nausea with vomiting, unspecified (principal); R10.13 Epigastric pain; Z20.822 Contact with and (suspected) exposure to COVID-19; Z20.828 Contact with and (suspected) exposure to other viral communicable diseases; Z79.899 Other long term (current) drug therapy
CPT/HCPCS: 0241U; 76700; 80053; 81001; 83690; 83735; 85025; 85610; 85652; 86140; 99284

== ENCOUNTER 2022-12-08 06:49 | Emergency (ER) | payer OTHER, MEDICAID, SELFPAY ==
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
[2022-12-08 07:29] VITALS: BP 146/106; PULSE 80; RESP 19; TEMP 36.6; O2SAT 98; BMI 38.3
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
[2022-12-08] MEDS: Ibuprofen 800 MG TABLET PO (08:01)
[2022-12-08 08:44] VITALS: BP 133/88; PULSE 74; RESP 16; TEMP 36.4; O2SAT 98
== END 2022-12-08 10:13 | disposition home or self-care (01) ==
PROVIDERS: Emergency Provider Emergency Medicine
DX: S09.90XA Unspecified injury of head, initial encounter (principal); S39.012A Strain of muscle, fascia and tendon of lower back, initial encounter; V43.52XA Car driver injured in collision with other type car in traffic accident, initial encounter; Y93.89 Activity, other specified; Y92.414 Local residential or business street as the place of occurrence of the external cause; Y99.9 Unspecified external cause status
CPT/HCPCS: 70450; 72100; 72125; 99284

== ENCOUNTER 2024-11-23 11:16 | Emergency (ER) | payer MEDICAID, SELFPAY ==
--- NOTE | ~2024-11-23 | XR_ITS ---
EXAMINATION: XR CHEST 1 VIEW HISTORY: Chest pain COMPARISON: Comparison is made with the prior examination dated 10/21/2021. FINDINGS: A single PA view of the chest is submitted. The lungs are expanded and clear. There is no pleural effusion, pneumothorax, or pulmonary vascular congestion. The heart is normal in size. The bones are intact. XR/XR chest 1V IMPRESSION: No acute cardiopulmonary abnormality. Electronically signed by: Vicente Alvarez MD 11/23/2024 12:07 PM EDT
[2024-11-23 11:50] VITALS: BP 160/94; PULSE 77; RESP 16; TEMP 37; O2SAT 98; BMI 37.7
--- NOTE | 2024-11-23 11:56 | ED_ITS ---
HPI - General Adult General Chief complaint: Headache Stated complaint: Dizziness Time Seen by Provider: 11/23/24 13:24 Related Data Previous Rx's ?Medication ?Instructions ?Recorded cephalexin 500 mg capsule 500 mg PO BID #14 caps 04/20 ondansetron 4 mg disintegrating 4 mg PO Q8H PRN nausea and 04/20/22 tablet vomiting #10 tabs Allergies Allergy/AdvReac Type Severity Reaction Status Date / Time No Known Allergies (No Known Allergy Verified 11/23/24 11:53 Allergies*) [facility] Social History Social History Advance Directives: No Advance Directives Information Provided: Yes Physical Exam ED Vital Signs: Vital Signs - 24 hr 11/23/24 14:30 11/23/24 15:27 11/23/24 15:29 Temperature 97.5 F 97.5 F Pulse Rate 63 78 78 Respiratory Rate 14 14 Blood Pressure 119/58 L 137/85 137/85 Pulse Oximetry 100 100 Oxygen Delivery Method Room Air Room Air BMI result Body Mass Index 37.7 Course Course Course Narrative: RME: 34 year male history of high blood pressure noncompliant with meds presents to ED for chest pain and headache for the past 4-5 days. Patient denies any slurred speech, facial droop paralysis of extremities. Patient denies any nausea or vomiting. Patient is slightly hypertensive in triage. NIH score is 0. Labs EKG ordered Medications Administered Discontinued Medications Generic Name Dose Route Start Last Admin Trade Name Freq PRN Reason Stop Dose Admin Meclizine HCl 25 mg 11/23/24 15:07 11/23/24 15:26 Meclizine Hcl 25 Mg Tablet PO 11/23/24 15:08 25 mg ONCE ONE Administration Medical Decision Making Medical Decision Making [facility] Narrative: Duplicate entered in error Lab Data 11/23/24 12:33 11/23/24 12:33 Labs: Lab Results 11/23/24 Range/Units 12:33 WBC 5.4 (4.8-10.8) X10*3/uL RBC 5.43 (4.60-5.80) X10*6/uL Hgb 16.2 (14.0-18.0) g/dl Hct 46.6 (42.0-52.0) % MCV 85.8 (80.0-98.0) fL MCH 29.8 (27.0-33.0) pg MCHC 34.8 (31.0-36.0) g/dl RDW 12.0 (11.0-16.0) % Plt Count 267 (160-400) X10*3/uL MPV 11.7 (9.4-12.4) fL Immature Gran % (Auto) 1.1 H (0.0-0.4) % Neut % (Auto) 51.9 (45-73) % Lymph % (Auto) 32.3 (20-40) % [place] % (Auto) 10.0 (2-11) % Eos % (Auto) 4.1 H (0-4) % Baso % (Auto) 0.6 (0-2) % Lymph # (Auto) 1.7 (1.2-4.9) X10*3/uL [place] # (Auto) 0.5 (0.1-1.2) X10*3/uL Eos # (Auto) 0.2 (0.0-0.4) X10*3/uL Baso # (Auto) 0.0 (0.0-0.2) X10*3/uL Abs Immat Gran (auto) 0.06 H (0.00-0.03) X10*3/uL Absolute Neuts (auto) 2.8 (2.0-8.3) x10*3/uL Absolute Nucleated RBC 0.000 (0.0-0.012) X10*3/uL Nucleated RBC % (auto) 0.0 (0.0-0.2) /100WBC PT 11.2 (10.9-12.4) SEC INR 1.0 (0.9-1.1) APTT 32.8 (26.7-34.1) SEC Sodium 141 (135-145) mmol/L Potassium 4.1 (3.3-5.1) mmol/L Chloride 105 (96-108) mmol/L Carbon Dioxide 27 (22-29) mmol/L Anion Gap 13 (12-20) BUN 14 (9-16) mg/dL Creatinine 0.87 (0.5-1.4) mg/dL Estim Creat Clear Calc 143.6 Estimated GFR > 60 Random Glucose 90 (60-115) mg/dL Calcium 9.9 (8.4-10.2) mg/dL Total Bilirubin 0.7 (0.0-1.0) mg/dL AST 24 (5-37) U/L ALT 55 H (0-40) U/L Alkaline Phosphatase 102 (39-117) U/L Troponin I High Sens < 2.7 (<3.5-35.0) ng/L NT-Pro-B Natriuret Pep < 15.8 (<300) pg/mL Total Protein 8.4 H (6.5-8.0) g/dL Albumin 4.9 (3.5-5.0) g/dL Discharge Plan Discharge Clinical Impression: Vertigo Patient Disposition: Home, Self-Care Instructions: Vertigo (ED) Additional Instructions: We evaluated you in the emergency department for unsteady/dizzy feeling. You had reassuring lab work and neurologic examination including walking gait assessment. Your cardiac enzyme or heart attack test in the blood was negative and you had a reassuring EKG if you continue to have chest pain return back to the emergency department. Prescriptions: No Action cephalexin 500 mg capsule 500 mg PO BID Qty: 14 0RF ondansetron 4 mg tablet,disintegrating 4 mg PO Q8H PRN (Reason: nausea and vomiting) Qty: 10 0RF Interventions: ED Discharge Assessment Last Done: 11/23/24 15:29 Discharge Date/Time: 11/23/24 15:29 Print Language: Namibian
[2024-11-23 12:37] LABS: MANUAL DIFF FLAG NO
[2024-11-23 12:40] LABS: Hematocrit 46.6 % (42.0-52.0); Hemoglobin 16.2 g/dl (14.0-18.0); Imm Gran Abs Auto 0.06 X10*3/uL (0.00-0.03); Imm Gran Pct Auto 1.1 % (0.0-0.4); Lymphocytes Absolute Auto 1.7 X10*3/uL (1.2-4.9); Mean Corpuscular HGB Conc 34.8 g/dl (31.0-36.0); Mean Corpuscular Hemoglobin 29.8 pg (27.0-33.0); Mean Corpuscular Volume 85.8 fL (80.0-98.0); NRBC Abs Auto 0.000 X10*3/uL (0.0-0.012); NRBC Pct Auto 0.0 /100WBC (0.0-0.2); Platelet Count 267 X10*3/uL (160-400); Red Blood Count 5.43 X10*6/uL (4.60-5.80); White Blood Count 5.4 X10*3/uL (4.8-10.8)
[2024-11-23 12:49] LABS: INTERNATIONAL NORM RATIO 1.0 (0.9-1.1); Prothrombin Time 11.2 SEC (10.9-12.4)
[2024-11-23 12:52] LABS: Alanine Aminotransferase 55 U/L (0-40); Albumin Level 4.9 g/dL (3.5-5.0); Alkaline Phosphatase 102 U/L (39-117); Anion Gap 13 (12-20); Aspartate Amino Transferase 24 U/L (5-37); Blood Urea Nitrogen 14 mg/dL (9-16); Calcium 9.9 mg/dL (8.4-10.2); Carbon Dioxide 27 mmol/L (22-29); Chloride 105 mmol/L (96-108); Creatinine Clr Calc Pharmacy 143.6; Estimated Glomerular Filt Rate > 60; Partial Thromboplastin Time 32.8 SEC (26.7-34.1); Potassium 4.1 mmol/L (3.3-5.1); Sodium 141 mmol/L (135-145); Total Protein 8.4 g/dL (6.5-8.0)
[2024-11-23 13:03] LABS: NT Pro B Type Natriuretic Pept < 15.8 pg/mL (<300); Troponin-I High Sensitivity < 2.7 ng/L (<3.5-35.0)
[2024-11-23 14:30] VITALS: BP 119/58; PULSE 63; RESP 14; TEMP 36.4; O2SAT 100
--- NOTE | 2024-11-23 15:07 | ED.DIZZY ---
HPI - Dizziness General Chief Complaint: Headache Stated Complaint: Dizziness Time Seen by Provider: 11/23/24 13:24 History of Present Illness ED Provider: oM Rosario MD HPI Narrative: 34-year-old male previously diagnosed with hypertension tells me he has felt dizzy/off balance with mild cloudiness of his vision for about 4 days no head strike denies any significant headache at this time. No ear pain tinnitus or ENT issues. No prior vertigo. No falls or focal neurologic complaints patient to me did not endorse chest pain until review of systems discussion. He did report some mild relatively stable left-sided chest discomfort ongoing for 4 days without exertional component or radiation Related Data Previous Rx's ?Medication ?Instructions ?Recorded cephalexin 500 mg capsule 500 mg PO BID #14 caps 04/20/22 ondansetron 4 mg disintegrating 4 mg PO Q8H PRN nausea and 04/20/22 tablet vomiting #10 tabs Allergies Allergy/AdvReac Type Severity Reaction Status Date / Time No Known Allergies (No Known Allergy Verified 11/23/24 11:53 Allergies*) [facility] Social History Social History Advance Directives: No Advance Directives Information Provided: Yes Physical Exam Exam: Exam: GENERAL: Well appearing. No apparent distress. Alert. HEAD/NECK: Normal to inspection. Neck supple. No cervical lymphadenopathy. EYES: Normal to inspection. Sclera non-icteric. ENMT: External nose normal. RESPIRATORY: Respiratory effort normal. Lungs clear to auscultation bilaterally. CARDIOVASCULAR: Regular rate. Normal rhythm. No murmur. No rubs. GI: Soft, non-tender, non-distended. No rebound or guarding. No masses palpable. No hepatosplenomegaly. SKIN: No jaundice. NEUROLOGICAL: Alert. PSYCHIATRIC: Alert. Appearance appropriate for situation. Attitude cooperative. OTHER: Comprehensive Neuro exam: Face symmetric, tongue midline, strong symmetric eye closure, pupils symmetric and reactive to light, intact sensation to the face throughout, intact strong face deviation and shoulder shrug. Sensation intact to light touch throughout 5 out of 5 strength in bilateral upper extremities, 5 and 5 strength in lower extremities Vital Signs: Vital Signs: Last Vital Signs Temp 97.5 F 11/23/24 15:29 Pulse 78 11/23/24 15:29 Resp 14 11/23/24 15:29 BP 137/85 11/23/24 15:29 Pulse Ox 100 11/23/24 15:29 O2 Del Method Room Air 11/23/24 15:29 BMI result Body Mass Index 37.7 Course Reevaluation(s) Reevaluation #1: 3:09 PM 11/23[facility]2024 [facility] BP reassessed 150s over 90s. Patient comfortable lab review reassuring Medications Administered Discontinued Medications Generic Name Dose Route Start Last Admin Trade Name Freq PRN Reason Stop Dose Admin Meclizine HCl 25 mg 11/23/24 15:07 11/23/24 15:26 Meclizine Hcl 25 Mg Tablet PO 11/23/24 15:08 25 mg ONCE ONE Administration Medical Decision Making Medical Decision Making MDM Narrative: Medical Decision Makin-year-old male with previously diagnosed hypertension not on any meds no toxic habits. Minimal if any hypertension and relatively asymptomatic looks well with a reassuring neurologic exam here. Subjectively feels slightly unsteady. Normal finger-nose and cerebellar testing and gait. No indication for imaging at this time. No focal deficits. Stroke scale is 0. He does have mild intermittent hypertension here but I do not think it is worth initiating treatment at this time he may need to take blood pressure diary. Meclizine PRN. ENT exam is reassuring there was no nystagmus. Preliminary Favored Differential Diagnosis: Peripheral vertigo. Less likely central vertigo CVA. Dehydration, hypertension among additional considered etiologies Testing Interpreted Independently: ?ECG: Rate 84, sinus rhythm, QTC 441 no ischemic changes no significant change compared to 2021 on file Radiology or Lab testing Results Reviewed: ?See below for details Consults: ?See below for details Independent Historians/External Chart Reviews: ?See below for details Social Determinants of Health Impacting MDM/Planning: ?See below for details Lab Data 11/23/24 12:33 11/23/24 12:33 Labs: Lab Results 11/23/24 Range/Units 12:33 WBC 5.4 (4.8-10.8) X10*3/uL RBC 5.43 (4.60-5.80) X10*6/uL Hgb 16.2 (14.0-18.0) g/dl Hct 46.6 (42.0-52.0) % MCV 85.8 (80.0-98.0) fL MCH 29.8 (27.0-33.0) pg MCHC 34.8 (31.0-36.0) g/dl RDW 12.0 (11.0-16.0) % Plt Count 267 (160-400) X10*3/uL MPV 11.7 (9.4-12.4) fL Immature Gran % (Auto) 1.1 H (0.0-0.4) % Neut % (Auto) 51.9 (45-73) % Lymph % (Auto) 32.3 (20-40) % [place] % (Auto) 10.0 (2-11) % Eos % (Auto) 4.1 H (0-4) % Baso % (Auto) 0.6 (0-2) % Lymph # (Auto) 1.7 (1.2-4.9) X10*3/uL [place] # (Auto) 0.5 (0.1-1.2) X10*3/uL Eos # (Auto) 0.2 (0.0-0.4) X10*3/uL Baso # (Auto) 0.0 (0.0-0.2) X10*3/uL Abs Immat Gran (auto) 0.06 H (0.00-0.03) X10*3/uL Absolute Neuts (auto) 2.8 (2.0-8.3) x10*3/uL Absolute Nucleated RBC 0.000 (0.0-0.012) X10*3/uL Nucleated RBC % (auto) 0.0 (0.0-0.2) /100WBC PT 11.2 (10.9-12.4) SEC INR 1.0 (0.9-1.1) APTT 32.8 (26.7-34.1) SEC Sodium 141 (135-145) mmol/L Potassium 4.1 (3.3-5.1) mmol/L Chloride 105 (96-108) mmol/L Carbon Dioxide 27 (22-29) mmol/L Anion Gap 13 (12-20) BUN 14 (9-16) mg/dL Creatinine 0.87 (0.5-1.4) mg/dL Estim Creat Clear Calc 143.6 Estimated GFR > 60 Random Glucose 90 (60-115) mg/dL Calcium 9.9 (8.4-10.2) mg/dL Total Bilirubin 0.7 (0.0-1.0) mg/dL AST 24 (5-37) U/L ALT 55 H (0-40) U/L Alkaline Phosphatase 102 (39-117) U/L Troponin I High Sens < 2.7 (<3.5-35.0) ng/L NT-Pro-B Natriuret Pep < 15.8 (<300) pg/mL Total Protein 8.4 H (6.5-8.0) g/dL Albumin 4.9 (3.5-5.0) g/dL Discharge Plan Discharge Clinical Impression: Vertigo Patient Disposition: Home, Self-Care Instructions: Vertigo (ED) Additional Instructions: We evaluated you in the emergency department for unsteady/dizzy feeling. You had reassuring lab work and neurologic examination including walking gait assessment. Your cardiac enzyme or heart attack test in the blood was negative and you had a reassuring EKG if you continue to have chest pain return back to the emergency department. Prescriptions: No Action cephalexin 500 mg capsule 500 mg PO BID Qty: 14 0RF ondansetron 4 mg tablet,disintegrating 4 mg PO Q8H PRN (Reason: nausea and vomiting) Qty: 10 0RF Interventions: ED Discharge Assessment Last Done: 11/23/24 15:29 Discharge Date/Time: 11/23/24 15:29 Print Language: Chinese
--- NOTE | 2024-11-23 15:11 | ECG_ITS ---
Test Reason : CP Blood Pressure : */* mmHG Vent. Rate : 84 BPM Atrial Rate : 84 BPM P-R Int : 128 ms QRS Dur : 84 ms QT Int : 374 ms P-R-T Axes : 2 67 16 degrees QTcB Int : 441 ms Normal sinus rhythm Normal ECG When compared with ECG of 21-Oct-2021 13:20, Questionable change in QRS axis Referred By: Mo Rosario Electronically Signed By: Josef Hairston
[2024-11-23 15:27] VITALS: BP 137/85; PULSE 78
[2024-11-23 15:29] VITALS: BP 137/85; PULSE 78; RESP 14; TEMP 36.4; O2SAT 100
== END 2024-11-23 15:29 | disposition home or self-care (01) ==
PROVIDERS: Physician Assistant; Emergency Provider Emergency Medicine
DX: R42 Dizziness and giddiness (principal); I10 Essential (primary) hypertension
CPT/HCPCS: 36415; 71045; 80053; 83880; 84484; 85025; 85610; 85730; 93005; 99283; 99284

== ENCOUNTER → 2024-11-23 11:52 | Outpatient (BNV) | payer OTHER, SELFPAY | PROVIDERS: Visit Provider Radiology Diagnostic Radiology | DX: R07.9 Chest pain, unspecified (principal) | CPT/HCPCS: 71045 ==

== ENCOUNTER → 2024-11-23 15:11 | Outpatient (BNV) | payer MEDICAID, SELFPAY | PROVIDERS: Emergency Provider Emergency Medicine; Visit Provider Internal Medicine Cardiovascular Disease | DX: R07.9 Chest pain, unspecified (principal) | CPT/HCPCS: 93010 ==

== ENCOUNTER 2024-12-03 16:29 | Emergency (ER) | payer MEDICAID, SELFPAY ==
--- NOTE | ~2024-12-03 | CT_ITS ---
CLINICAL HISTORY: headache, dizziness CT head without contrast Comparison: CT/KS/SR - CT HEAD WITHOUT IV CONTRAST - 12/08/22 07:50 EDT Findings: No intra-axial mass, midline shift, hydrocephalus, or acute hemorrhage. No significant atrophy-like change or white matter disease. The visualized paranasal sinuses and mastoid air cells are normal. The orbits are unremarkable. No skull fracture. IMPRESSION: 1. No acute intracranial findings. This document has been electronically signed by: Mo Brandon DO on 12/03/2024 22:51:51
[2024-12-03 16:43] VITALS: BP 159/90; PULSE 85; RESP 18; TEMP 36.5; O2SAT 98; BMI 37.3
--- NOTE | 2024-12-03 16:43 | ED_ITS ---
HPI - General Adult General Chief complaint: Dizziness Stated complaint: Dizziness, L sided numbness Time Seen by Provider: 12/03/24 20:37 History of Present Illness ED Provider: Elvia KEMP narrative: The patient is a 34-year-old male who has been feeling intermittently dizzy and having headaches over the last 2 weeks. He was seen here in the emergency room 10 days ago complaining of dizziness. He has a normal physical exam and was reassured. He says last night he felt very dizzy when he went to bed so much so that he came close to calling an ambulance last night. Today he had another episode of dizziness when he stood up and came to the hospital because of that. He has been checking his blood pressure a lot at home lately and he thinks it is consistently fairly elevated. Related Data Previous Rx's ?Medication ?Instructions ?Recorded cephalexin 500 mg capsule 500 mg PO BID #14 caps 04/20 ondansetron 4 mg disintegrating 4 mg PO Q8H PRN nausea and 04/20/22 tablet vomiting #10 tabs losartan 50 mg tablet 50 mg PO DAILY #30 tabs 11/09 08/02 Allergies Allergy/AdvReac Type Severity Reaction Status Date / Time No Known Allergies (No Known Allergy Verified 12/03/24 16:45 Allergies*) Review of Systems 2 Review of Systems: Yes all other systems are reviewed and are negative Physical Exam ED Vital Signs: Vital Signs - 24 hr 12/03/24 16:43 12/03/24 18:07 12/03/24 18:10 Temperature 97.7 F Pulse Rate 85 81 82 Respiratory Rate 18 Blood Pressure 159/90 H 138/83 142/83 H Pulse Oximetry 98 Oxygen Delivery Method Room Air 12/03/24 18:13 12/03/24 18:16 12/03/24 23:26 Temperature 98.2 F 98.2 F Pulse Rate 104 H 84 84 Respiratory Rate 18 18 Blood Pressure 151/96 H 152/93 H 152/93 H Pulse Oximetry 98 98 Oxygen Delivery Method Room Air Room Air BMI result Body Mass Index 37.3 Const Other: The patient is awake and alert. Does not appear obviously ill or in distress. HENMT Other: The face is symmetrical. ?Mucous membranes moist. Eyes Other: Pupils are round equal, conjunctivae are clear, extraocular movements intact. Funduscopic exam is unremarkable bilaterally. Neck Neck: Yes normal visual inspection, Yes full ROM and Yes no meningeal signs Resp Effort & Inspection: normal respiratory effort Auscultation: clear to auscultation bilaterally Cardio Rate: regular rate Rhythm: regular rhythm Heart sounds: S1 normal heart sound present and S2 normal heart sound present Skin Other: The skin is dry and unremarkable Neuro Other: The patient is awake and alert with a normal mental status. His demeanor is nontoxic. He has a supple neck. Pupils are round, equal, and reactive to light, extraocular movements are intact, funduscopic exam seems unremarkable bilaterally. The face is symmetrical. Tongue is midline. Speech is clear. No pronator drift. He moves his extremities with normal strength. Finger-nose is normal. Heel-youssef is unremarkable. He walks without a broad-based gait. General: no meningeal signs Extrem Other: There is no calf swelling or tenderness. No asymmetry. No peripheral edema. Course Course Course Narrative: Lory Oconnell [employer] 12/03 1642 This is a rapid medical exam. Deferred additional HPI, ROS, PE to primary provider. 34 yo male with no known medical history here with headaches x weeks, dizziness x 2 weeks, left sided facial numbness. Will obtain labs VSS Medical Decision Making Medical Decision Making MDM Narrative: The patient is a 34-year-old male who has been having symptoms of dizziness for the last 2 weeks. He was here several days ago and was felt to have a normal neurological exam. No neuroimaging was done. He returns complaining of similar symptoms. He also seems to have intermittent headaches. He does not have a headache at the time that I examined him. I have some suspicion that he is very anxious about his blood pressure. He takes his blood pressure a lot at home and he feels his blood pressures are often high at home. I suspect that these high blood pressure readings are probably in part why he has come to the hospital. He has a an unremarkable exam today and a negative head CT. I think at this point it would be reasonable to start him on an antihypertensive medication. I will start him on losartan 50 mg daily. He should be able to arrange a primary care doctor's office appointment within the next month for further consideration of this medication. Lab Data 12/03/24 16:57 12/03/24 16:57 Labs: Lab Results 12/03/24 Range/Units 16:57 WBC 5.8 (4.8-10.8) X10*3/uL RBC 5.47 (4.60-5.80) X10*6/uL Hgb 16.5 (14.0-18.0) g/dl Hct 47.7 (42.0-52.0) % MCV 87.2 (80.0-98.0) fL MCH 30.2 (27.0-33.0) pg MCHC 34.6 (31.0-36.0) g/dl RDW 12.1 (11.0-16.0) % Plt Count 280 (160-400) X10*3/uL MPV 11.6 (9.4-12.4) fL Immature Gran % (Auto) 0.5 H (0.0-0.4) % Neut % (Auto) 53.8 (45-73) % Lymph % (Auto) 35.5 (20-40) % [place] % (Auto) 6.8 (2-11) % Eos % (Auto) 3.1 (0-4) % Baso % (Auto) 0.3 (0-2) % Lymph # (Auto) 2.1 (1.2-4.9) X10*3/uL [place] # (Auto) 0.4 (0.1-1.2) X10*3/uL Eos # (Auto) 0.2 (0.0-0.4) X10*3/uL Baso # (Auto) 0.0 (0.0-0.2) X10*3/uL Abs Immat Gran (auto) 0.03 (0.00-0.03) X10*3/uL Absolute Neuts (auto) 3.1 (2.0-8.3) x10*3/uL Absolute Nucleated RBC 0.000 (0.0-0.012) X10*3/uL Nucleated RBC % (auto) 0.0 (0.0-0.2) /100WBC Sodium 143 (135-145) mmol/L Potassium 4.1 (3.3-5.1) mmol/L Chloride 104 (96-108) mmol/L Carbon Dioxide 29 (22-29) mmol/L Anion Gap 14 (12-20) BUN 14 (9-16) mg/dL Creatinine 1.02 (0.5-1.4) mg/dL Estim Creat Clear Calc 121.8 Estimated GFR > 60 Random Glucose 116 H (60-115) mg/dL Calcium 9.7 (8.4-10.2) mg/dL Magnesium 2.0 (1.6-2.6) mg/dL Discharge Plan Discharge Clinical Impression: Dizziness, Hypertension Patient Disposition: Home, Self-Care Additional Instructions: Your testing in the emergency room today has been reassuring. The CAT scan of your head is normal. I have sent a prescription for the medication losartan which you may start taking once a day for your blood pressure. Please work on getting a follow up appointment at the [facility] so that you can discuss this with a regular primary care doctor who can manage your symptoms and your blood pressure on a long-term basis. Return to the emergency room if you feel significantly worse. Prescriptions: New losartan 50 mg tablet 50 mg PO DAILY Qty: 30 0RF No Action cephalexin 500 mg capsule 500 mg PO BID Qty: 14 0RF ondansetron 4 mg tablet,disintegrating 4 mg PO Q8H PRN (Reason: nausea and vomiting) Qty: 10 0RF Referrals: [facility] [Provider Group] Interventions: ED Discharge Assessment Last Done: 12/03/24 23:26 Discharge Date/Time: 12/03/24 23:27 Print Language: Czech
[2024-12-03 17:01] LABS: MANUAL DIFF FLAG NO
[2024-12-03 17:02] LABS: Hematocrit 47.7 % (42.0-52.0); Hemoglobin 16.5 g/dl (14.0-18.0); Imm Gran Abs Auto 0.03 X10*3/uL (0.00-0.03); Imm Gran Pct Auto 0.5 % (0.0-0.4); Lymphocytes Absolute Auto 2.1 X10*3/uL (1.2-4.9); Mean Corpuscular HGB Conc 34.6 g/dl (31.0-36.0); Mean Corpuscular Hemoglobin 30.2 pg (27.0-33.0); Mean Corpuscular Volume 87.2 fL (80.0-98.0); NRBC Abs Auto 0.000 X10*3/uL (0.0-0.012); NRBC Pct Auto 0.0 /100WBC (0.0-0.2); Platelet Count 280 X10*3/uL (160-400); Red Blood Count 5.47 X10*6/uL (4.60-5.80); White Blood Count 5.8 X10*3/uL (4.8-10.8)
[2024-12-03 17:15] LABS: Anion Gap 14 (12-20); Blood Urea Nitrogen 14 mg/dL (9-16); Calcium 9.7 mg/dL (8.4-10.2); Carbon Dioxide 29 mmol/L (22-29); Chloride 104 mmol/L (96-108); Creatinine Clr Calc Pharmacy 121.8; Estimated Glomerular Filt Rate > 60; Magnesium 2.0 mg/dL (1.6-2.6); Potassium 4.1 mmol/L (3.3-5.1); Sodium 143 mmol/L (135-145)
[2024-12-03 18:07] VITALS: BP 138/83; PULSE 81
[2024-12-03 18:10] VITALS: BP 142/83; PULSE 82
[2024-12-03 18:13] VITALS: BP 151/96; PULSE 104
[2024-12-03 18:16] VITALS: BP 152/93; PULSE 84; RESP 18; TEMP 36.8; O2SAT 98
[2024-12-03 23:26] VITALS: BP 152/93; PULSE 84; RESP 18; TEMP 36.8; O2SAT 98
== END 2024-12-03 23:27 | disposition home or self-care (01) ==
PROVIDERS: Nurse Practitioner Family; Emergency Provider Emergency Medicine
DX: R51.9 Headache, unspecified (principal); R42 Dizziness and giddiness; I10 Essential (primary) hypertension; Z79.899 Other long term (current) drug therapy
CPT/HCPCS: 36415; 70450; 80048; 83735; 85025; 99284

== ENCOUNTER → 2024-12-03 21:25 | Outpatient (BNV) | payer MEDICAID, SELFPAY | PROVIDERS: Emergency Provider Emergency Medicine; Visit Provider Family Medicine | DX: R51.9 Headache, unspecified (principal); R42 Dizziness and giddiness | CPT/HCPCS: 70450 ==